=== PATIENT | female | born 1995 | race Caucasian/White ===

== ENCOUNTER 2021-11-12 14:04 | Day surgery (SDC) | payer BC ==
[2021-11-12] MEDS ORDERED: Decadron 4 MG INJ IV ONE (14:05)
[2021-11-12] MEDS ORDERED: LIDOCAINE HCL 2% 100 MG/5 ML IJ ONE (14:05)
[2021-11-12] MEDS ORDERED: Lactated Ringers 1,000 ML IV ONE ×2 (15:32→15:59)
[2021-11-12] MEDS ORDERED: DIPRIVAN 200 MG/20 ML IV ONE (16:17)
[2021-11-12] MEDS ORDERED: TORAdol 30 mg Injection ONE (16:33)
--- NOTE | 2021-11-12 20:12 | XRAY ---
Indication: Left C2-C4 MBB. Intraoperative fluoroscopy provided for 21 seconds. 2 digital spot image submitted for interpretation demonstrates posterior needle tips projecting over the expected left C2-C4 nerve roots. Correlate with intraoperative findings/report.
--- NOTE | 2021-11-13 08:50 | XRAY ---
21 seconds fluoroscopy time in surgery for left C2-C4 MBB.
== END 2021-11-12 16:45 | disposition home or self-care (01) ==
LOC: SDC-PAIN 14:04
PROVIDERS: ATTEND Psychiatry & Neurology Pain Medicine
DX: M47.812 Spondylosis without myelopathy or radiculopathy, cervical region (principal); Z79.899 Other long term (current) drug therapy
CPT/HCPCS: 64490; 64491; 72040; 77002; 81025; J1100; J1885; J2704

== ENCOUNTER 2021-12-31 13:13 | Day surgery (SDC) | payer BC ==
[2021-12-31] MEDS ORDERED: LIDOCAINE HCL 2% 100 MG/5 ML IJ ONE (13:14)
[2021-12-31] MEDS ORDERED: DIPRIVAN 200 MG/20 ML IV ONE ×3 (15:12→15:18)
[2021-12-31] MEDS ORDERED: Lactated Ringers 1,000 ML IV ONE (16:43)
--- NOTE | 2021-12-31 16:59 | XRAY ---
Indication: Right C2-C4 MBB. Intraoperative fluoroscopy provided for 24 seconds. 3 digital spot images submitted for interpretation demonstrates posterior needle tips projecting over the expected right C2-C4 nerve roots. Correlate with intraoperative findings/report.
--- NOTE | 2021-12-31 17:04 | XRAY ---
24 seconds of fluoroscopy was used in surgery for a right C2-C4 MBB.
== END 2021-12-31 15:36 | disposition home or self-care (01) ==
LOC: SDC-PAIN 13:13
PROVIDERS: ATTEND Psychiatry & Neurology Pain Medicine
DX: M47.812 Spondylosis without myelopathy or radiculopathy, cervical region (principal); Z79.899 Other long term (current) drug therapy
CPT/HCPCS: 64490; 64491; 72040; 77002; 81025; J2704

== ENCOUNTER 2022-02-04 07:48 | Day surgery (SDC) | payer BC ==
[2022-02-04] MEDS ORDERED: BUPIVACAINE 0.5% VIAL IJ ONE (07:49)
[2022-02-04] MEDS ORDERED: Depo-Medrol 40 MG/ML IM ONE (07:49)
[2022-02-04] MEDS ORDERED: Xylocaine 1% Vial 30 ML PF IJ ONE (07:49)
[2022-02-04] MEDS ORDERED: Sodium Chloride 0.9(Preservative Free) 10 ML IJ ONE (07:49)
[2022-02-04] MEDS ORDERED: DIPRIVAN 200 MG/20 ML IV ONE ×2 (08:58→09:09)
--- NOTE | 2022-02-04 10:26 | XRAY ---
Indication: Right C2-C4 MBB. Intraoperative fluoroscopy provided for 25 seconds. 2 digital spot image submitted for interpretation demonstrates posterior needle tips projecting over the expected right C2-C4 nerve roots. Correlate with intraoperative findings/report.
--- NOTE | 2022-02-04 10:59 | XRAY ---
25 seconds fluoroscopy time used in surgery for right C2-C4 MBB.
[2022-02-04] MEDS ORDERED: Lactated Ringers 1,000 ML IV ONE (11:49)
== END 2022-02-04 09:30 | disposition home or self-care (01) ==
LOC: SDC-PAIN 07:48
PROVIDERS: ATTEND Psychiatry & Neurology Pain Medicine
DX: M47.812 Spondylosis without myelopathy or radiculopathy, cervical region (principal); Z79.899 Other long term (current) drug therapy
CPT/HCPCS: 64490; 64491; 72040; 77002; 81025; J1030; J2001; J2704

== ENCOUNTER 2022-03-05 13:21 | Day surgery (SDC) | payer BC ==
[2022-03-05] MEDS ORDERED: BUPIVACAINE 0.5% VIAL IJ ONE (13:22)
[2022-03-05] MEDS ORDERED: DIPRIVAN 200 MG/20 ML IV ONE ×2 (15:02→15:10)
--- NOTE | 2022-03-05 16:25 | XRAY ---
Indication: Left C2-C4 MBB. Intraoperative fluoroscopy provided for 26 seconds. 2 digital spot image submitted for interpretation demonstrates posterior needle tips projecting over the expected left C2-C4 nerve roots. Correlate with intraoperative findings/report.
--- NOTE | 2022-03-05 16:26 | XRAY ---
26 seconds fluoroscopy time in surgery for left C2-C4 MBB.
== END 2022-03-05 15:35 | disposition home or self-care (01) ==
LOC: SDC-PAIN 13:21
PROVIDERS: ATTEND Psychiatry & Neurology Pain Medicine
DX: M47.812 Spondylosis without myelopathy or radiculopathy, cervical region (principal); Z79.899 Other long term (current) drug therapy
CPT/HCPCS: 64490; 64491; 72040; 77002; 81025; J2704

== ENCOUNTER 2022-04-15 11:45 | Day surgery (SDC) | payer BC ==
[2022-04-15] MEDS ORDERED: Decadron 4 MG INJ IV ONE (11:46)
[2022-04-15] MEDS ORDERED: LIDOCAINE HCL 1% 50 MG/5 ML VL PF IJ ONE (11:46)
[2022-04-15] MEDS ORDERED: BUPIVACAINE 0.5% VIAL IJ ONE (11:46)
[2022-04-15] MEDS ORDERED: Lactated Ringers 1,000 ML IV ONE (14:37)
--- NOTE | 2022-04-15 16:06 | XRAY ---
Indication: Right C2-C4 RFA. Intraoperative fluoroscopy provided for 13 seconds. 2 digital spot images submitted for interpretation demonstrates posterior needle tips projecting over the expected right C2-C4 nerve roots. Correlate with intraoperative findings/report.
--- NOTE | 2022-04-15 16:35 | XRAY ---
13 seconds of fluoroscopy was used in surgery for a right C2-C4 RFA.
== END 2022-04-15 14:12 | disposition home or self-care (01) ==
LOC: SDC-PAIN 11:45
PROVIDERS: ATTEND Psychiatry & Neurology Pain Medicine
DX: M47.812 Spondylosis without myelopathy or radiculopathy, cervical region (principal); Z79.899 Other long term (current) drug therapy
CPT/HCPCS: 64633; 64634; 72040; 77002; 81025; J1100; J2001

== ENCOUNTER 2022-04-22 15:59 | Day surgery (SDC) | payer BC ==
[2022-04-22] MEDS ORDERED: BUPIVACAINE 0.5% VIAL IJ ONE (16:00)
[2022-04-22] MEDS ORDERED: LIDOCAINE HCL 1% 50 MG/5 ML VL PF IJ ONE (16:00)
[2022-04-22] MEDS ORDERED: Decadron 4 MG INJ IV ONE (16:00)
[2022-04-22] MEDS ORDERED: DIPRIVAN 200 MG/20 ML IV ONE ×2 (17:14→17:23)
[2022-04-22] MEDS ORDERED: Lactated Ringers 1,000 ML IV ONE (17:32)
--- NOTE | 2022-04-22 19:58 | XRAY ---
Indication: Left C2-C4 RFA. Intraoperative fluoroscopy provided for 39 seconds. 5 digital spot image submitted for interpretation demonstrates posterior needle tips projecting over the expected left C2-C4 nerve roots. Correlate with intraoperative findings/report.
--- NOTE | 2022-04-23 08:47 | XRAY ---
39 seconds of fluoroscopy was used in surgery for a left C2-C4 RFA
== END 2022-04-22 18:00 | disposition home or self-care (01) ==
LOC: SDC-PAIN 15:59
PROVIDERS: ATTEND Psychiatry & Neurology Pain Medicine
DX: M47.812 Spondylosis without myelopathy or radiculopathy, cervical region (principal); Z79.899 Other long term (current) drug therapy
CPT/HCPCS: 64633; 64634; 72040; 77002; 81025; J1100; J2001; J2704